=== PATIENT | female | born 1970 | race Caucasian/White ===

== ENCOUNTER 2016-11-02 11:21 | Inpatient (IN) | payer BC ==
[~2016-11-02] VITALS: Ht 154.9 cm; Wt 112.5 kg
[2016-11-02 16:43] LABS: HEMOGLOBIN 15.1 gm/dl (12.3-15.3); RED BLOOD COUNT 4.79 M/UL (4.00-5.10)
[2016-11-02 17:12] LABS: BUN/CREATININE RATIO 19 (0-10)
[2016-11-02] MEDS ORDERED: ZYRTEC10 M3 PO (17:55)
[2016-11-02] MEDS ORDERED: WELLBUTRIN SR150 MG PO (17:56)
[2016-11-02] MEDS ORDERED: ZOVIRAX 200 MG200 MG PO (18:17)
[2016-11-03 14:29] LABS: BODY FLUID SOURCE PLEURAL
[2016-11-03 14:48] LABS: LDH, BODY FLUID 159 U/L; TOTAL PROTEIN, BODY FLUID 5.2 gm/dL
[2016-11-03] MEDS ORDERED: IBUPROFEN400 MG PO (17:22)
[2016-11-03] MEDS ORDERED: LORTAB 5-325 M1 EACH PO (17:23)
== END 2016-11-03 17:55 | disposition home or self-care (01) | DRG 598 ==
LOC: MED SURG 4 15:13
PROVIDERS: ADMIT Internal Medicine
PROC: 0W993ZZ Drainage of Right Pleural Cavity, Percutaneous Approach (ICD-10-PCS; principal; 2016-11-03)
DX: C50.911 Malignant neoplasm of unspecified site of right female breast (principal); J90 Pleural effusion, not elsewhere classified; C77.9 Secondary and unspecified malignant neoplasm of lymph node, unspecified; C78.01 Secondary malignant neoplasm of right lung; R07.89 Other chest pain; F41.9 Anxiety disorder, unspecified; Z90.710 Acquired absence of both cervix and uterus; Z91.041 Radiographic dye allergy status; Z83.3 Family history of diabetes mellitus; Z82.49 Family history of ischemic heart disease and other diseases of the circulatory system; Z79.890 Hormone replacement therapy; Z79.899 Other long term (current) drug therapy; L29.9 Pruritus, unspecified; F32.9 Major depressive disorder, single episode, unspecified
CPT/HCPCS: 36415; 71010; 71020; 71250; 76942; 80053; 82150; 82945; 83615; 83986; 84075; 84157; 85025; 85610; 85730; 86039; 86140; 86431; 87070; 87205; 89051; J1335; J1885; J7050

== ENCOUNTER 2020-12-26 08:09 | Emergency (ER) | payer MEDICARE ==
[~2020-12-26] VITALS: Ht 154.9 cm; Wt 108.9 kg
[~2020-12-26 08:09] MED LIST: IBUPROFEN400 MG PO; LORTAB 5-325 M1 EACH PO; WELLBUTRIN SR150 MG PO; ZOVIRAX 200 MG200 MG PO; ZYRTEC10 M3 PO
[2020-12-26 09:38] LABS: RED BLOOD COUNT 4.76 M/UL (4.00-5.10); WHITE BLOOD COUNT 8.3 K/UL (4.5-11.0)
[2020-12-26 10:06] LABS: BUN/CREATININE RATIO 16 (0-10)
[2020-12-26] MEDS ORDERED: VIBRAMYCIN100 MG PO (14:41)
== END 2020-12-26 15:16 | disposition home or self-care (01) ==
LOC: ER1 08:09
PROVIDERS: Physician Assistant
DX: J18.9 Pneumonia, unspecified organism (principal); J45.909 Unspecified asthma, uncomplicated; Z88.1 Allergy status to other antibiotic agents; Z91.041 Radiographic dye allergy status; Z20.822 Contact with and (suspected) exposure to COVID-19
CPT/HCPCS: 71045; 78580; 80053; 82550; 82553; 83874; 84484; 85025; 85379; 93005; 96374; 96375; 99285; A9540; J0456; J0696; J7030; U0002